=== PATIENT | male | born 2005 | race Caucasian/White ===

== ENCOUNTER 2024-11-04 00:53 | Emergency (ER) | payer OTHER ==
[~2024-11-04] VITALS: Ht 175.3 cm; Wt 63.5 kg
[2024-11-04] MEDS ORDERED: LIDOCAINE HCL 1% 20 ML VIAL ONE (01:50)
[2024-11-04] MEDS ORDERED: SULFAMETH/TRIMETH 800/160 MG TABLET ONE (02:00)
[2024-11-04] MEDS: LIDOCAINE HCL 1% 20 ML VIAL TP ONE (02:12)
[2024-11-04] MEDS: SULFAMETH/TRIMETH 800/160 MG TABLET PO ONE (02:12)
[2024-11-04] MEDS ORDERED: HYDROCODONE/APAP 5-325MG TABLET ONE (02:12)
[2024-11-04] MEDS: HYDROCODONE/APAP 5-325MG TABLET PO ONE (02:13)
[2024-11-04] MEDS ORDERED: SULF1TAB48 PO (02:14)
[2024-11-04] MEDS ORDERED: HYDR-3972 PO (02:14)
[2024-11-04 02:31] VITALS: BP 122/76; TEMP 97.9; O2SAT 96
== END 2024-11-04 02:32 | disposition home or self-care (01) ==
LOC: ER 01:30
DX: L02.01 Cutaneous abscess of face (principal); E10.9 Type 1 diabetes mellitus without complications; F17.200 Nicotine dependence, unspecified, uncomplicated; Z79.4 Long term (current) use of insulin
CPT/HCPCS: 99283; 10060; J3490; A4606; A4663

== ENCOUNTER 2024-11-06 09:34 | Emergency (ER) | payer OTHER ==
[~2024-11-06] VITALS: Ht 175.3 cm; Wt 63.5 kg
[~2024-11-06 09:34] MED LIST: HYDR-3972 PO; SULF1TAB48 PO
[2024-11-06] MEDS ORDERED: NEOMY/BACITRA/POLYMYXIN B OINT UD PACKET TP ONE (10:12)
[2024-11-06] MEDS: NEOMY/BACITRA/POLYMYXIN B OINT UD PACKET TP ONE (10:14)
[2024-11-06 10:22] VITALS: BP 113/72; TEMP 98.1; O2SAT 99
== END 2024-11-06 10:22 | disposition home or self-care (01) ==
LOC: ER 09:45
DX: Z48.817 Encounter for surgical aftercare following surgery on the skin and subcutaneous tissue (principal); E11.9 Type 2 diabetes mellitus without complications; F17.200 Nicotine dependence, unspecified, uncomplicated; Z79.2 Long term (current) use of antibiotics
CPT/HCPCS: A4606; A4663

== ENCOUNTER 2024-11-09 11:47 | Emergency (ER) | payer OTHER ==
[~2024-11-09] VITALS: Ht 175.3 cm; Wt 63.5 kg
[2024-11-09] MEDS ORDERED: methylPREDNISolone SOD SUCC 125 MG/2 ML VIAL ONE (12:15)
[2024-11-09] MEDS ORDERED: FAMOTIDINE. 20 MG/2 ML VIAL IV ONE ×2 (12:15→12:16)
[2024-11-09] MEDS ORDERED: diphenhydrAMINE 50 MG/1 ML VIAL ONE (12:15)
[2024-11-09] MEDS: IV NORMAL SALINE 1000 ML BAG IV ONE (12:34)
[2024-11-09] MEDS: methylPREDNISolone SOD SUCC 125 MG/2 ML VIAL IV ONE (12:34)
[2024-11-09] MEDS: FAMOTIDINE. 20 MG/2 ML VIAL IV ONE (12:34)
[2024-11-09] MEDS: diphenhydrAMINE 50 MG/1 ML VIAL IV ONE (12:34)
[2024-11-09] MEDS ORDERED: DIPH25CA83 PO (14:32)
[2024-11-09] MEDS ORDERED: FAMO-132 PO (14:32)
[2024-11-09] MEDS ORDERED: CLIN300C12 PO (14:32)
[2024-11-09] MEDS ORDERED: PRED20TA PO (14:32)
[2024-11-09 14:44] VITALS: BP 125/68; O2SAT 99
== END 2024-11-09 14:45 | disposition home or self-care (01) ==
LOC: ER 11:47
DX: R21 Rash and other nonspecific skin eruption (principal); T50.905A Adverse effect of unspecified drugs, medicaments and biological substances, initial encounter; E10.9 Type 1 diabetes mellitus without complications; F17.200 Nicotine dependence, unspecified, uncomplicated; L02.01 Cutaneous abscess of face; Z79.4 Long term (current) use of insulin; Z98.890 Other specified postprocedural states; Y92.89 Other specified places as the place of occurrence of the external cause
CPT/HCPCS: 99284; 96374; 96375; 96361; 82962; J2919; J1200; J3490 ×2; J7040; A4606; A4663

== ENCOUNTER 2024-12-19 12:59 | Emergency (ER) | payer OTHER ==
[~2024-12-19] VITALS: Ht 175.3 cm; Wt 63.5 kg
[~2024-12-19 12:59] MED LIST changes: +CLIN300C12 PO; +DIPH25CA83 PO; +FAMO-132 PO; +PRED20TA PO
[2024-12-19] MEDS ORDERED: INSU100V7 SQ (13:09)
[2024-12-19] MEDS ORDERED: INSU100V42 (13:12)
[2024-12-19] MEDS ORDERED: VANCOMYCIN IV 200 ML ONE (14:21)
[2024-12-19] MEDS ORDERED: CEFTRIAXONE /D5W 50ML IVPB **ER PYXIS IV ONE (14:21)
[2024-12-19] MEDS ORDERED: CLINDAMYCIN 600 MG PIGGYBACK**ER OMNI IV ONE (14:21)
[2024-12-19] MEDS: CEFTRIAXONE 2 G in IV DEXTROSE 5% 100 ML IV ONE (14:25)
[2024-12-19] MEDS: VANCOMYCIN IV 1,000 MG in IV DEXTROSE 5% 250 ML IV ONE (14:30)
[2024-12-19 14:46] LABS: BASOPHILS % (AUTO) 0.4 % (0.0-2.0); EOSINOPHILS % (AUTO) 0.2 % (0.0-7.0); HEMATOCRIT 44.1 % (36.7-47.1); LYMPHOCYTES # (AUTO) 1.5 K/uL (0.8-4.8); LYMPHOCYTES % (AUTO) 24.4 % (20.5-51.5); MEAN CORPUSCULAR HEMOGLOBIN 29.8 uug (23.8-33.4); MEAN CORPUSCULAR HGB CONC 34 g/dL (32.5-36.3); MEAN CORPUSCULAR VOLUME 87.8 fL (73.0-96.2); MONOCYTES # (AUTO) 0.4 K/uL (0.1-1.30); MONOCYTES % (AUTO) 7.1 % (0.0-11.0); NEUTROPHILS # (AUTO) 4.1 K/uL (1.8-8.9); NEUTROPHILS % (AUTO) 67.9 % (38.5-71.5); PLATELET COUNT (AUTO) 210 K/uL (152-348); RED BLOOD CELL COUNT(AUTO) 5.02 MIL/uL (4.06-5.63)
[2024-12-19 14:47] LABS: DIFFERENTIAL COMMENT 1
[2024-12-19 14:54] LABS: CALCIUM 9.3 mg/dL (8.5-10.1); CARBON DIOXIDE 27 mmol/L (21-32); CHLORIDE 99 mmol/L (98-107); CREATININE 0.8 mg/dL (0.6-1.3); GLUCOSE 289 mg/dL (74-106); POTASSIUM 3.7 mmol/L (3.5-5.1); SODIUM SERUM 137 mmol/L (136-145); UREA NITROGEN, BLOOD 8 mg/dL (7-18)
[2024-12-19 15:08] LABS: ALANINE AMINOTRANSFERASE 15 U/L (16-63); ALBUMIN 4.2 g/dL (3.4-5.0); ALKALINE PHOSPHATASE 87 U/L (50-136); ASPARTATE AMINOTRANSFERASE 12 U/L (15-37); BILIRUBIN,DIRECT 0.2 mg/dL (0.0-0.2); BILIRUBIN,TOTAL 1.1 mg/dL (0.2-1.0); NT-PRO BNP 20 pg/mL (0-125); TOTAL PROTEIN, SERUM 6.4 g/dL (6.4-8.2)
[2024-12-19] MEDS: CLINDAMYCIN PHOSPHATE IV 600 MG in IV DEXTROSE 5% 100 ML IV ONE (15:12)
[2024-12-19 15:47] LABS: ABG BASE EXCESS -2.3 mmol/L (-2.0-3.0); ABG HCO3 20.4 mmol/L (21.0-28.0); ABG PCO2 29.5 mmHg (35.0-48.0); ABG PH 7.458 (7.350-7.450); ABG PO2 93.4 mmHg (83.0-108.0); ABG SITE RIGHT RADIAL; ABG TOTAL HEMOGLOBIN 13.4 G/dL (13.5-17.5); AaDO2 97.6 mmHg; COHb 0.5 % (0.5-1.5); MetHb 0.5 % (0.0-1.5); O2Hb 96.1 % (94.0-98.0)
[2024-12-19] MEDS ORDERED: ONDANSETRON 4 MG/2 ML VIAL ONE (16:06)
[2024-12-19] MEDS: ONDANSETRON 4 MG/2 ML VIAL IV ONE (16:07)
[2024-12-19 17:35] VITALS: O2SAT 97
[2024-12-19] MEDS ORDERED: CLIN300C12 PO (18:17)
== END 2024-12-19 18:24 | disposition home or self-care (01) ==
LOC: ER 13:02
DX: R53.1 Weakness (principal); E10.65 Type 1 diabetes mellitus with hyperglycemia; M25.562 Pain in left knee; M79.604 Pain in right leg; R06.00 Dyspnea, unspecified; R07.9 Chest pain, unspecified; F17.200 Nicotine dependence, unspecified, uncomplicated; Z79.52 Long term (current) use of systemic steroids; Z86.14 Personal history of Methicillin resistant Staphylococcus aureus infection
CPT/HCPCS: 36415; 36600; 71045; 83605; 84484; 85025; 85730; 87040; A4606; A4663; J0696; J2405; J3370; J3490

== ENCOUNTER 2025-02-24 22:48 | Inpatient (IN) | payer OTHER ==
[~2025-02-24] VITALS: Ht 175.3 cm; Wt 61.7 kg
[~2025-02-24 22:48] MED LIST changes: +INSU100V42; +INSU100V7 SQ
[2025-02-24] MEDS: ONDANSETRON 4 MG/2 ML VIAL IV ONE (23:15)
[2025-02-24] MEDS: IV NORMAL SALINE 1000 ML BAG IV ONE (23:15)
[2025-02-24] MEDS ORDERED: ONDANSETRON 4 MG/2 ML VIAL ONE (23:22)
[2025-02-24 23:48] LABS: BASOPHILS # (AUTO) 0.1 K/UL (0.0-0.2); BASOPHILS % (AUTO) 0.4 % (0.0-2.0); DIFFERENTIAL COMMENT 0; EOSINOPHILS % (AUTO) 0.2 % (0.0-7.0); HEMATOCRIT 60.8 % (36.7-47.1); LYMPHOCYTES # (AUTO) 2.5 K/uL (0.8-4.8); LYMPHOCYTES % (AUTO) 17.2 % (20.5-51.5); MEAN CORPUSCULAR HEMOGLOBIN 30.4 uug (23.8-33.4); MEAN CORPUSCULAR HGB CONC 33 g/dL (32.5-36.3); MEAN CORPUSCULAR VOLUME 91.7 fL (73.0-96.2); MONOCYTES # (AUTO) 1.1 K/uL (0.1-1.30); MONOCYTES % (AUTO) 7.5 % (0.0-11.0); NEUTROPHILS # (AUTO) 10.7 K/uL (1.8-8.9); NEUTROPHILS % (AUTO) 74.7 % (38.5-71.5); PLATELET COUNT (AUTO) 155 K/uL (152-348); WHITE BLOOD COUNT (AUTO) 14.3 K/uL (3.6-10.2)
[2025-02-24 23:50] LABS: RED BLOOD CELL COUNT(AUTO) 6.62 MIL/uL (4.06-5.63)
[2025-02-24 23:51] LABS: HEMOGLOBIN 20.2 g/dL (12.5-16.3)
[2025-02-25] VITALS (33 sets, daily range): BP systolic 93–165; BP diastolic 52–93; TEMP 97.4–100.8; O2SAT 97–100
[2025-02-25 00:05] LABS: ABG BASE EXCESS -19.3 mmol/L (-2.0-3.0); ABG HCO3 5.9 mmol/L (21.0-28.0); ABG PCO2 16.4 mmHg (35.0-48.0); ABG PH 7.177 (7.350-7.450); ABG PO2 122.7 mmHg (83.0-108.0); ABG SITE RIGHT RADIAL; ABG TOTAL HEMOGLOBIN 20.8 G/dL (13.5-17.5); AaDO2 97.6 mmHg; COHb 0.3 % (0.5-1.5); MetHb 0.9 % (0.0-1.5); O2Hb 97.1 % (94.0-98.0)
[2025-02-25 00:09] LABS: BILIRUBIN,TOTAL 0.8 mg/dL (0.2-1.0); CALCIUM 10.8 mg/dL (8.5-10.1); POTASSIUM 5.6 mmol/L (3.5-5.1); TOTAL PROTEIN, SERUM 8.7 g/dL (6.4-8.2)
[2025-02-25] MEDS: KETOROLAC TROMETHAMINE 15 MG INJ IVP ONE (00:19)
[2025-02-25] MEDS: HYDROMORPHONE 1 MG/1 ML DISP.SYRIN IV ONE (00:19)
[2025-02-25] MEDS ORDERED: KETOROLAC TROMETHAMINE 15 MG INJ ONE (00:20)
[2025-02-25] MEDS ORDERED: HYDROMORPHONE 1 MG/1 ML DISP.SYRIN ONE (00:20)
[2025-02-25 00:23] LABS: ALBUMIN 5.3 g/dL (3.4-5.0); BILIRUBIN,DIRECT 0.2 mg/dL (0.0-0.2); CREATININE 1.2 mg/dL (0.6-1.3)
[2025-02-25 00:39] LABS: *CLARITY,URINE CLEAR (CLEAR); *COLOR,URINE YELLOW (YELLOW); *KETONES,URINE 4+ (NEGATIVE); *PROTEIN,URINE 2+ (NEGATIVE); *UROBILINOGEN,URINE 0.2 E.U./dl (NORMAL); LEUKOCYTE ESTERASE ,URINE NEGATIVE (NEGATIVE); NITRITE, URINE NEGATIVE (NEGATIVE); PH,URINE 5.5 (5.0-8.0)
[2025-02-25 00:45] LABS: *BILIRUBIN,URIN 1+ (NEGATIVE); *BLOOD, URINE TRACE (NEGATIVE); UGLUCOSE 2+ (NEGATIVE)
[2025-02-25] MEDS ORDERED: IV NS 1000 ML 1,000 ML IV PRN (01:30)
[2025-02-25] MEDS ORDERED: REMEDY ESSENTIAL ZINC PASTE 113 GM TP PRN (01:30)
[2025-02-25] MEDS ORDERED: INSULIN REGULAR, HUMAN 100 UNIT in IV NORMAL SALINE 100 ML IV PRN (01:30)
[2025-02-25 01:32] LABS: BACTERIA,URINE FEW /HPF (NONE SEEN); COARSE GRANULAR CASTS,URINE 0-3 /LPF; RBC,URINE 0-3 /HPF (0-3); SQUAMOUS EPITHELIAL CELL,UR FEW /HPF (NONE SEEN); WBC,URINE NONE SEEN /HPF (0-3)
[2025-02-25 01:48] LABS: CALCIUM 9.5 mg/dL (8.5-10.1); CREATININE 1.1 mg/dL (0.6-1.3); MAGNESIUM 2.2 mg/dL (1.8-2.4); PHOSPHOROUS 4.4 mg/dL (2.5-4.9); POTASSIUM 5.5 mmol/L (3.5-5.1)
[2025-02-25 02:29] LABS: ANISOCYTOSIS 1+; LYMPHOCYTES % (MANUAL) 21 % (20-40); MONOCYTES % (MANUAL) 7 % (2-10); NEUTROPHILS % (MANUAL) 72 % (42-75); PLATELET ESTIMATE ADEQUATE
[2025-02-25] MEDS ORDERED: PANTOPRAZOLE SODIUM 40 MG VIAL ONE (02:43)
[2025-02-25] MEDS: PANTOPRAZOLE SODIUM IV 80 MG in IV DEXTROSE 5% 100 ML IV ONE (02:47)
[2025-02-25] MEDS: BLOOD SUGAR DIAGNOSTIC 1 EACH STRIP VI SCH ×2 (02:54→21:53)
[2025-02-25] MEDS ORDERED: INSULIN REGULAR, HUMAN 1000 UNIT/10 ML VIAL ONE (03:12)
[2025-02-25] MEDS: ENOXAPARIN SODIUM 40 MG/0.4 ML DISP.SYRIN SQ SCH (03:37)
[2025-02-25] MEDS: INSULIN REGULAR, HUMAN 100 UNIT in IV NORMAL SALINE 99 ML IV PRN (03:49)
[2025-02-25] MEDS: MORPHINE SULFATE 2 MG/1 ML DISP.SYRIN IV PRN (05:25)
[2025-02-25] MEDS: ONDANSETRON 4 MG/2 ML VIAL IV PRN (05:30)
[2025-02-25] MEDS: MAGNESIUM SULFATE/D5W 100 ML IV SCH ×2 (05:37→19:33)
[2025-02-25 06:01] LABS: BASOPHILS # (AUTO) 0.1 K/UL (0.0-0.2); EOSINOPHILS % (AUTO) 0.1 % (0.0-7.0); MEAN CORPUSCULAR HGB CONC 33 g/dL (32.5-36.3); RED CELL DISTRIBUTION WIDTH 13.4 % (12.1-16.2)
[2025-02-25 06:02] LABS: BASOPHILS % (AUTO) 0.3 % (0.0-2.0); HEMATOCRIT 56.4 % (36.7-47.1); HEMOGLOBIN 18.8 g/dL (12.5-16.3); LYMPHOCYTES # (AUTO) 1.8 K/uL (0.8-4.8); LYMPHOCYTES % (AUTO) 4.8 % (20.5-51.5); MEAN CORPUSCULAR HEMOGLOBIN 30.1 uug (23.8-33.4); MEAN CORPUSCULAR VOLUME 90.4 fL (73.0-96.2); MONOCYTES # (AUTO) 2.9 K/uL (0.1-1.30); MONOCYTES % (AUTO) 7.7 % (0.0-11.0); NEUTROPHILS # (AUTO) 33.2 K/uL (1.8-8.9); NEUTROPHILS % (AUTO) 87.1 % (38.5-71.5); PLATELET COUNT (AUTO) 223 K/uL (152-348); RED BLOOD CELL COUNT(AUTO) 6.23 MIL/uL (4.06-5.63)
[2025-02-25 06:16] LABS: DIFFERENTIAL COMMENT 1; WHITE BLOOD COUNT (AUTO) 38.1 K/uL (3.6-10.2)
[2025-02-25 06:17] LABS: CALCIUM 8.8 mg/dL (8.5-10.1); CHLORIDE 101 mmol/L (98-107); CREATININE 1.3 mg/dL (0.6-1.3); GLUCOSE 312 mg/dL (74-106); MAGNESIUM 2.2 mg/dL (1.8-2.4); POTASSIUM 5.3 mmol/L (3.5-5.1); SODIUM SERUM 134 mmol/L (136-145); UREA NITROGEN, BLOOD 10 mg/dL (7-18)
[2025-02-25 06:26] LABS: THYROID STIMULATING HORMONE 1.001 mIU/mL (0.358-3.740)
[2025-02-25 06:31] LABS: CARBON DIOXIDE < 5 mmol/L (21-32)
[2025-02-25 06:31] LABS: ABG BASE EXCESS -22.7 mmol/L (-2.0-3.0); ABG HCO3 3.8 mmol/L (21.0-28.0); ABG PCO2 < 13.1 mmHg (35.0-48.0); ABG PH 7.113 (7.350-7.450); ABG PO2 130.1 mmHg (83.0-108.0); ABG SITE RIGHT RADIAL; ABG TOTAL HEMOGLOBIN 19.2 G/dL (13.5-17.5); AaDO2 97.6 mmHg; COHb 0.2 % (0.5-1.5); O2Hb 97.2 % (94.0-98.0)
[2025-02-25] MEDS: IV NS 1000 ML 1,000 ML IV PRN (06:44)
[2025-02-25] MEDS ORDERED: PANTOPRAZOLE SODIUM IV 40 MG in IV DEXTROSE 5% 100 ML IV SCH (09:00)
[2025-02-25 09:52] LABS: BASOPHILS # (AUTO) 0.1 K/UL (0.0-0.2); BASOPHILS % (AUTO) 0.2 % (0.0-2.0); HEMATOCRIT 50.6 % (36.7-47.1); HEMOGLOBIN 16.9 g/dL (12.5-16.3); LYMPHOCYTES # (AUTO) 1.7 K/uL (0.8-4.8); LYMPHOCYTES % (AUTO) 5.2 % (20.5-51.5); MEAN CORPUSCULAR HEMOGLOBIN 30.1 uug (23.8-33.4); MEAN CORPUSCULAR HGB CONC 33 g/dL (32.5-36.3); MEAN CORPUSCULAR VOLUME 90.2 fL (73.0-96.2); MONOCYTES # (AUTO) 2.1 K/uL (0.1-1.30); MONOCYTES % (AUTO) 6.4 % (0.0-11.0); NEUTROPHILS # (AUTO) 28.4 K/uL (1.8-8.9); NEUTROPHILS % (AUTO) 88.2 % (38.5-71.5); PLATELET COUNT (AUTO) 211 K/uL (152-348); RED CELL DISTRIBUTION WIDTH 13.2 % (12.1-16.2)
[2025-02-25 09:58] LABS: DIFFERENTIAL COMMENT 1; WHITE BLOOD COUNT (AUTO) 32.2 K/uL (3.6-10.2)
[2025-02-25 10:12] LABS: ALANINE AMINOTRANSFERASE 20 U/L (16-63); ALBUMIN 3.9 g/dL (3.4-5.0); ALKALINE PHOSPHATASE 107 U/L (50-136); ASPARTATE AMINOTRANSFERASE 5 U/L (15-37); BILIRUBIN,TOTAL 0.5 mg/dL (0.2-1.0); CALCIUM 8.4 mg/dL (8.5-10.1); CHLORIDE 102 mmol/L (98-107); CREATININE 1.3 mg/dL (0.6-1.3); GLUCOSE 315 mg/dL (74-106); MAGNESIUM 3.3 mg/dL (1.8-2.4); POTASSIUM 5.1 mmol/L (3.5-5.1); SODIUM SERUM 130 mmol/L (136-145); TOTAL PROTEIN, SERUM 6.6 g/dL (6.4-8.2); UREA NITROGEN, BLOOD 10 mg/dL (7-18)
[2025-02-25] MEDS: PANTOPRAZOLE SODIUM 40 MG VIAL IV SCH (10:14)
[2025-02-25] MEDS: MEROPENEM 1 G in IV NORMAL SALINE 100 ML IV SCH (10:14)
[2025-02-25 10:19] LABS: CARBON DIOXIDE 7 mmol/L (21-32)
[2025-02-25 10:51] LABS: BAND % (MANUAL) 8 % (0-10); LYMPHOCYTES % (MANUAL) 5 % (20-40); MONOCYTES % (MANUAL) 7 % (2-10); NEUTROPHILS % (MANUAL) 80 % (42-75)
[2025-02-25 11:07] LABS: CREATINE KINASE, TOTAL 20 U/L (39-308); LIPASE < 10 U/L (16-77)
[2025-02-25] MEDS: SODIUM BICARBONATE 8.4% 50 MEQ in IV NS 1000 ML 1,000 ML IV SCH (11:35)
[2025-02-25] MEDS: VANCOMYCIN HCL 750 MG in IV DEXTROSE 5% 250 ML IV SCH (12:59)
[2025-02-25 14:44] LABS: CALCIUM 7.7 mg/dL (8.5-10.1); MAGNESIUM 2.4 mg/dL (1.8-2.4); PHOSPHOROUS 2.2 mg/dL (2.5-4.9); POTASSIUM 4.4 mmol/L (3.5-5.1)
[2025-02-25] MEDS: SODIUM PHOSPHATE MM 15 MMOL in IV NORMAL SALINE 250 ML IV ONE (16:05)
[2025-02-25 19:11] LABS: CALCIUM 7.9 mg/dL (8.5-10.1); CREATININE 0.8 mg/dL (0.6-1.3); MAGNESIUM 2.1 mg/dL (1.8-2.4); PHOSPHOROUS 2.5 mg/dL (2.5-4.9); POTASSIUM 3.5 mmol/L (3.5-5.1)
[2025-02-25] MEDS: POTASSIUM CHLORIDE 50 ML IV SCH (19:33)
[2025-02-25] MEDS: ACETAMINOPHEN 325 MG TABLET PO PRN (20:00)
[2025-02-25] MEDS: INSULIN REGULAR, HUMAN 1000 UNIT/10 ML VIAL SQ PRN (21:55)
[2025-02-25] MEDS ORDERED: DEXTROSE 50% 50 ML DISP.SYRIN IV PRN (22:00)
[2025-02-26] VITALS (14 sets, daily range): BP systolic 92–113; BP diastolic 52–90; TEMP 98.2–98.8; O2SAT 97–100
[2025-02-26 05:52] LABS: BASOPHILS % (AUTO) 0.2 % (0.0-2.0); EOSINOPHILS % (AUTO) 0.4 % (0.0-7.0); HEMOGLOBIN 14.3 g/dL (12.5-16.3); LYMPHOCYTES # (AUTO) 1.4 K/uL (0.8-4.8); LYMPHOCYTES % (AUTO) 11.8 % (20.5-51.5); MEAN CORPUSCULAR HEMOGLOBIN 30.3 uug (23.8-33.4); MEAN CORPUSCULAR HGB CONC 34 g/dL (32.5-36.3); MEAN CORPUSCULAR VOLUME 88.8 fL (73.0-96.2); MONOCYTES # (AUTO) 1.2 K/uL (0.1-1.30); MONOCYTES % (AUTO) 10.1 % (0.0-11.0); NEUTROPHILS # (AUTO) 9.3 K/uL (1.8-8.9); NEUTROPHILS % (AUTO) 77.5 % (38.5-71.5); PLATELET COUNT (AUTO) 128 K/uL (152-348); RED BLOOD CELL COUNT(AUTO) 4.72 MIL/uL (4.06-5.63); RED CELL DISTRIBUTION WIDTH 13.1 % (12.1-16.2)
[2025-02-26 05:57] LABS: ALANINE AMINOTRANSFERASE 13 U/L (16-63); ALBUMIN 2.8 g/dL (3.4-5.0); ALKALINE PHOSPHATASE 84 U/L (50-136); ASPARTATE AMINOTRANSFERASE 11 U/L (15-37); BILIRUBIN,TOTAL 0.7 mg/dL (0.2-1.0); CALCIUM 7.6 mg/dL (8.5-10.1); CARBON DIOXIDE 17 mmol/L (21-32); CHLORIDE 105 mmol/L (98-107); CREATININE 0.7 mg/dL (0.6-1.3); GLUCOSE 243 mg/dL (74-106); MAGNESIUM 2.1 mg/dL (1.8-2.4); PHOSPHOROUS 1.5 mg/dL (2.5-4.9); POTASSIUM 3.2 mmol/L (3.5-5.1); SODIUM SERUM 138 mmol/L (136-145); TOTAL PROTEIN, SERUM 5.2 g/dL (6.4-8.2); UREA NITROGEN, BLOOD 5 mg/dL (7-18)
[2025-02-26] MEDS: ENOXAPARIN SODIUM 40 MG/0.4 ML DISP.SYRIN SQ SCH (08:07)
[2025-02-26] MEDS: POTASSIUM CHLORIDE 50 ML IV SCH (08:08)
[2025-02-26] MEDS ORDERED: QUVIVIQ PO (10:29)
[2025-02-26] MEDS ORDERED: INSU100I26 SQ ×2 (10:30→13:24)
[2025-02-26] MEDS ORDERED: NICO-780 TP (10:31)
[2025-02-26] MEDS ORDERED: INSU100I4 SQ (10:32)
[2025-02-26] MEDS ORDERED: LIDO5CRE18 TP (10:34)
[2025-02-26] MEDS: NEUTRA PHOS PACKET PO ONE (11:08)
[2025-02-26] MEDS: NYSTATIN SUSPENSION 5 ML LIQUID UDC PO SCH (11:08)
[2025-02-26] MEDS ORDERED: NICOTINE POLACRILEX 4 MG GUM-PK OF TEN BC PRN (11:15)
[2025-02-26] MEDS: NICOTINE POLACRILEX 2 MG GUM BC PRN (11:57)
[2025-02-26] MEDS ORDERED: FAMO10TA41 PO (13:24)
[2025-02-26] MEDS ORDERED: CEPH500C2 PO (13:24)
[2025-02-26] MEDS ORDERED: NYST5ORA PO (13:24)
[2025-02-26] MEDS ORDERED: QUVIVIQ PO PRN (13:30)
[2025-02-26] MEDS: CEphaleXIN 500 MG CAPSULE PO SCH (14:04)
[2025-02-27] MEDS ORDERED: FAMOTIDINE 20 MG TABLET PO SCH (09:00)
== END 2025-02-26 14:33 | disposition home or self-care (01) | DRG 871 ==
LOC: ER 23:06 → CCU 02-25 01:30
PROVIDERS: ADMIT Nurse Practitioner Family; ATTEND Nurse Practitioner Family
PROC: 02HV33Z Insertion of Infusion Device into Superior Vena Cava, Percutaneous Approach (ICD-10-PCS; principal; 2025-02-25)
DX: A41.9 Sepsis, unspecified organism (principal); E10.10 Type 1 diabetes mellitus with ketoacidosis without coma; N17.0 Acute kidney failure with tubular necrosis; B37.0 Candidal stomatitis; E87.1 Hypo-osmolality and hyponatremia; K90.0 Celiac disease; E86.0 Dehydration; D75.1 Secondary polycythemia; E87.5 Hyperkalemia; E10.43 Type 1 diabetes mellitus with diabetic autonomic (poly)neuropathy; K31.84 Gastroparesis; K29.00 Acute gastritis without bleeding; K52.9 Noninfective gastroenteritis and colitis, unspecified; E87.8 Other disorders of electrolyte and fluid balance, not elsewhere classified; Z88.2 Allergy status to sulfonamides; Z79.4 Long term (current) use of insulin; T38.3X6A Underdosing of insulin and oral hypoglycemic [antidiabetic] drugs, initial encounter; Z91.148 Patient's other noncompliance with medication regimen for other reason; Y92.009 Unspecified place in unspecified non-institutional (private) residence as the place of occurrence of the external cause
CPT/HCPCS: 36415; 36600; 71045; 82803; 83605; 83690; 83735; 84100; 84443; 84484; 85025; 87040; A4606; A4663; G0378; J1171; J1650; J1815; J1885; J2185; J2270; J2405; J2470; J3475; J3480; J3490; J7040; J7050